=== PATIENT | female | born 1940 | race Caucasian/White ===

== ENCOUNTER 2018-12-23 20:21 | Inpatient (IN) | payer MEDICARE, MEDICAID ==
[~2018-12-23] VITALS: Ht 160 cm; Wt 90.9 kg
[~2018-12-23 20:21] MED LIST: ALLO100T PO; AMLO10TA13 PO; ASPI-1264 PO; BUDE10.2 INH; CLON0.2T PO; CLOP75TA35 PO; DONE10TA7 PO; GABA-532 PO; HUM10VIA SUBCUT; HYDR-4383 PO; MODA200T25 PO; OMEP20CA10 PO; OXYB10TA4 PO; POTA20TA19 PO; SIMV20TA5 PO
[2018-12-23 22:02] LABS: BASOPHILS # (AUTO) 0.1 X10'3 (0-0.2); BASOPHILS % (AUTO) 0.8 % (0-1); EOSINOPHILS # (AUTO) 0.2 X10'3 (0-0.9); HEMATOCRIT 40.8 % (35.0-45.0); HEMOGLOBIN 13.4 g/dl (12.0-16.0); LYMPHOCYTES # (AUTO) 1.7 X10'3 (1.1-4.8); LYMPHOCYTES % (AUTO) 18.2 % (21-51); MEAN CORPUSCULAR HEMOGLOBIN 28.3 PG (27.0-31.0); MEAN CORPUSCULAR HGB CONC 32.9 g/dL (33.0-36.5); MEAN CORPUSCULAR VOLUME 86.1 FL (78-98); MEAN PLATELET VOLUME 8.6 FL (7.4-10.4); MONOCYTES # (AUTO) 0.9 X10'3 (0-0.9); MONOCYTES % (AUTO) 10.3 % (2-12); NEUTROPHILS # (AUTO) 6.4 X10'3 (1.8-7.7); NEUTROPHILS % (AUTO) 68.7 % (42-75); PLATELET COUNT 266 X10'3 (140-440); RED BLOOD COUNT 4.74 X10'6 (4.20-5.60); RED CELL DISTRIBUTION WIDTH 18.1 % (11.5-14.5); WHITE BLOOD COUNT 9.2 X10'3 (4.5-11.0)
[2018-12-23 22:15] LABS: ALANINE AMINOTRANSFERASE 19 U/L (12-78); ALBUMIN 3.4 G/DL (3.4-5.0); ALKALINE PHOSPHATASE 151 IU/L (46-116); ANION GAP 7 (8-16); ASPARTATE AMINO TRANSFERASE 15 U/L (10-37); BILIRUBIN,TOTAL 0.3 MG/DL (0.1-1.0); BLOOD UREA NITROGEN 24 MG/DL (7-18); BUN/CREATININE RATIO 18.5 (6.6-38.0); CALCIUM 8.7 MG/DL (8.5-10.1); CHLORIDE 104 MMOL/L (99-107); GLUCOSE 74 MG/DL (70-104); PARTIAL THROMBOPLASTIN TIME 28 SECONDS (22-32); POTASSIUM 3.2 MMOL/L (3.5-5.1); SODIUM 141 MMOL/L (135-145); TOTAL CARBON DIOXIDE 30.1 MMOL/L (24-32); TOTAL PROTEIN 6.9 G/DL (6.4-8.2); eGFR 40 ML/MIN
[2018-12-23 22:17] LABS: ETHANOL < 0.010 GM/DL (0.0-0.010); TROPONIN I < 0.04 NG/ML (0.0-0.05)
[2018-12-23 22:18] LABS: CLARITY,URINE CLEAR (Clear); COLOR,URINE STRAW (Yellow); GLUCOSE, URINE NEGATIVE (Neg); KETONES,URINE NEGATIVE (Neg); LEUKOCYTE ESTERASE ,URINE NEGATIVE (Neg); NITRITES, URINE NEGATIVE (Neg); OCCULT BLOOD,URINE NEGATIVE (Neg); PH,URINE 5.5 (4.8-8.0); PROTEIN,URINE NEGATIVE (Neg); UROBILINOGEN,URINE 0.2 E.U/dL (0.2-1.0)
[2018-12-23 22:24] LABS: URINE AMPHETAMINE SCREEN NEGATIVE (Neg); URINE BARBITUATE SCREEN NEGATIVE (Neg); URINE BENZODIAZEPINES SCREEN NEGATIVE (Neg); URINE CANNABINOID SCREEN NEGATIVE (Neg); URINE COCAINE SCREEN NEGATIVE (Neg); URINE METHADONE SCREEN NEGATIVE (Neg); URINE OPIATE SCREEN NEGATIVE (Neg); URINE PHENCYCLIDINE SCREEN NEGATIVE (Neg)
[2018-12-23 22:32] LABS: UA COLLECTION TYPE STRAIGHT CATH
[2018-12-23] MEDS ORDERED: potassium Cl 20 mEq SR tablet PO ONE (22:35)
[2018-12-24] MEDS ORDERED: normal saline 1000ml 1,000 ML IV SCH (00:02)
[2018-12-24] MEDS ORDERED: acetaminophen 325mg tablet PO PRN ×2 (00:05)
[2018-12-24] MEDS ORDERED: mag hydrox/Alum hydrox/simeth 30ml oral suspension PO PRN (00:05)
[2018-12-24] MEDS ORDERED: potassium Cl 20 mEq SR tablet PO PRN ×2 (00:05)
[2018-12-24] MEDS ORDERED: magnesium 4gm in 100ml NS 100 ML IV PRN (00:05)
[2018-12-24] MEDS ORDERED: docusate sod 100mg capsule PO PRN (00:05)
[2018-12-24] MEDS ORDERED: ondansetron/PF 4mg/2ml inj IV PRN (00:05)
[2018-12-24] MEDS ORDERED: magnesium 2GM in 50ml NS 50 ML IV PRN (00:05)
[2018-12-24] MEDS ORDERED: potassium Cl 40MEQ/NS 500ml 500 ML IV PRN ×2 (00:05)
[2018-12-24] MEDS ORDERED: dextrose 50%-water 50ml dispensing syringe IV PRN ×2 (00:10)
[2018-12-24] MEDS ORDERED: MESSAGE TO PHARMACY PO ONE (00:10)
[2018-12-24] MEDS ORDERED: dextrose ORAL solution 15 GM/59 ML bottle PO PRN ×2 (00:10)
[2018-12-24] MEDS ORDERED: glucagon, human recombinant 1mg kit SUBCUT PRN (00:10)
[2018-12-24] MEDS ORDERED: insulin Lispro (HumaLOG) vial - multi-dose SQ SCH (00:10)
[2018-12-24] MEDS ORDERED: ipratropium/albuterol 3ml nebule NEB PRN (01:10)
[2018-12-24 03:55] VITALS: BP 152/58
--- NOTE | 2018-12-24 06:48 | NUR ---
Problems reprioritized. Patient report given, questions answered & plan of care reviewed with REHANA. Addendum: 12/24/18 at 0648 by Aashish Trejo RN Amended: Links added.
--- NOTE | 2018-12-24 06:51 | NUR ---
Patient in room [facility]. I have received report from NANCY Aguilar and had the opportunity to ask questions and assume patient care.
[2018-12-24 07:08] LABS: CHOLESTEROL 182 MG/DL (0-200); HDL CHOLESTEROL 26 MG/DL (35-60); LDL CHOLESTEROL 137 MG/DL (50-100); TRIGLYCERIDES 149 MG/DL (20-135)
[2018-12-24 07:28] LABS: HEMOGLOBIN A1C 6.7 % (4.5-6.2)
[2018-12-24 08:00] VITALS: BP 121/50
[2018-12-24] MEDS ORDERED: aspirin 81mg tablet.DR PO SCH (08:00)
[2018-12-24] MEDS ORDERED: K and/or MAG REPLACEMENT MC SCH (08:00)
[2018-12-24] MEDS ORDERED: clopidogrel 75mg tablet PO SCH (08:00)
[2018-12-24 11:07] LABS: MAGNESIUM 2.2 MG/DL (1.5-2.4); POTASSIUM 3.7 MMOL/L (3.5-5.1)
[2018-12-24 12:00] VITALS: BP 156/81
[2018-12-24] MEDS ORDERED: ASPI-974 PO (13:27)
[2018-12-24] MEDS ORDERED: CLOP75TA15 PO (13:28)
[2018-12-24] MEDS ORDERED: FURO80TA3 PO (13:32)
[2018-12-24] MEDS ORDERED: HUM10VIA SUBCUT (13:32)
[2018-12-24] MEDS ORDERED: ALLO300T8 PO (13:32)
[2018-12-24] MEDS ORDERED: insulin glargine (Lantus) pen - multi-dose SQ SCH (21:00)
== END 2018-12-24 16:05 | disposition home health service (06) | DRG 69 ==
LOC: ER 20:21 → ED HOLD 12-24 00:08 → SUR 3N 12-24 03:52
PROVIDERS: ADMIT Family Medicine; ATTEND Family Medicine
DX: G45.9 Transient cerebral ischemic attack, unspecified (principal); E11.51 Type 2 diabetes mellitus with diabetic peripheral angiopathy without gangrene; E78.5 Hyperlipidemia, unspecified; F03.90 Unspecified dementia, unspecified severity, without behavioral disturbance, psychotic disturbance, mood disturbance, and anxiety; G47.33 Obstructive sleep apnea (adult) (pediatric); I10 Essential (primary) hypertension; H54.61 Unqualified visual loss, right eye, normal vision left eye; J44.9 Chronic obstructive pulmonary disease, unspecified; Z60.2 Problems related to living alone; M81.0 Age-related osteoporosis without current pathological fracture; H53.47 Heteronymous bilateral field defects; R29.810 Facial weakness; I69.398 Other sequelae of cerebral infarction; Z90.710 Acquired absence of both cervix and uterus; Z88.1 Allergy status to other antibiotic agents; Z79.899 Other long term (current) drug therapy; Z79.82 Long term (current) use of aspirin; Z79.4 Long term (current) use of insulin; Z87.891 Personal history of nicotine dependence
CPT/HCPCS: 36415; 70450; 70544; 70547; 70551; 71045; 80053; 80061; 80305; 80320; 81003; 82140; 82948; 83036; 83735; 84132; 84484; 85025; 85610; 85730; 87070; 92508; 92616; 93306; 93880; 94760; 97116; 97162; 97530; 99285; G0378; J1815; J7030

== ENCOUNTER 2019-07-21 18:55 | Inpatient (IN) | payer MEDICARE, MEDICAID ==
[~2019-07-21] VITALS: Ht 160 cm; Wt 81.8 kg
[~2019-07-21 18:55] MED LIST changes: -ALLO100T PO; +ALLO300T8 PO; -ASPI-1264 PO; +ASPI-974 PO; +CLOP75TA15 PO; -CLOP75TA35 PO; +FURO80TA3 PO; -OMEP20CA10 PO; +SIMV-42 PO; -SIMV20TA5 PO
[2019-07-21] MEDS ORDERED: cloNIDine 0.1 mg tablet PO ONE (19:10)
[2019-07-21 19:24] LABS: BASOPHILS % (AUTO) 0.4 % (0-1); EOSINOPHILS # (AUTO) 0.1 X10'3 (0-0.9); EOSINOPHILS % (AUTO) 0.9 % (0-6); HEMATOCRIT 42.2 % (35.0-45.0); LYMPHOCYTES # (AUTO) 1.6 X10'3 (1.1-4.8); LYMPHOCYTES % (AUTO) 18.7 % (21-51); MEAN CORPUSCULAR HEMOGLOBIN 29.9 PG (27.0-31.0); MEAN CORPUSCULAR HGB CONC 33.1 g/dL (33.0-36.5); MEAN CORPUSCULAR VOLUME 90.6 FL (78-98); MEAN PLATELET VOLUME 8.2 FL (7.4-10.4); MONOCYTES # (AUTO) 0.8 X10'3 (0-0.9); MONOCYTES % (AUTO) 9.8 % (2-12); NEUTROPHILS # (AUTO) 6.1 X10'3 (1.8-7.7); NEUTROPHILS % (AUTO) 70.2 % (42-75); PLATELET COUNT 243 X10'3 (140-440); RED BLOOD COUNT 4.66 X10'6 (4.20-5.60); RED CELL DISTRIBUTION WIDTH 16.3 % (11.5-14.5); WHITE BLOOD COUNT 8.6 X10'3 (4.5-11.0)
[2019-07-21 19:35] LABS: PARTIAL THROMBOPLASTIN TIME 25 SECONDS (22-32)
[2019-07-21 19:47] LABS: ALANINE AMINOTRANSFERASE 14 U/L (12-78); ALBUMIN 3.8 G/DL (3.4-5.0); ALKALINE PHOSPHATASE 147 IU/L (46-116); ANION GAP 11 (8-16); ASPARTATE AMINO TRANSFERASE 14 U/L (10-37); BILIRUBIN,TOTAL 0.5 MG/DL (0.1-1.0); BLOOD UREA NITROGEN 19 MG/DL (7-18); BUN/CREATININE RATIO 16.1 (6.6-38.0); CHLORIDE 106 MMOL/L (99-107); CREATININE 1.18 MG/DL (0.40-0.90); GLUCOSE 176 MG/DL (70-104); POTASSIUM 3.9 MMOL/L (3.5-5.1); SODIUM 143 MMOL/L (135-145); TOTAL CARBON DIOXIDE 26.4 MMOL/L (24-32); TOTAL PROTEIN 7.6 G/DL (6.4-8.2); eGFR 45 ML/MIN
[2019-07-21 19:50] LABS: TROPONIN I < 0.04 NG/ML (0.0-0.05)
[2019-07-21 19:52] LABS: ETHANOL < 0.010 GM/DL (0.0-0.010)
--- NOTE | 2019-07-21 19:56 | NUR ---
PT BACK FROM CT 1923
[2019-07-21] MEDS ORDERED: MAGN400C PO (20:26)
[2019-07-21] MEDS ORDERED: magnesium hydroxide 30ml (MOM) UD suspension PO PRN (20:45)
[2019-07-21] MEDS ORDERED: ondansetron/PF 4mg/2ml inj IV PRN (20:45)
[2019-07-21] MEDS ORDERED: mag hydrox/Alum hydrox/simeth 30ml oral suspension PO PRN (20:45)
[2019-07-21] MEDS ORDERED: acetaminophen 325mg tablet PO PRN (20:45)
[2019-07-21] MEDS ORDERED: insulin Lispro (HumaLOG) vial - multi-dose SQ SCH (20:50)
[2019-07-21] MEDS ORDERED: glucagon, human recombinant 1mg kit SUBCUT PRN (20:50)
[2019-07-21] MEDS ORDERED: MESSAGE TO PHARMACY PO ONE (20:50)
[2019-07-21] MEDS ORDERED: dextrose 50%-water 50ml dispensing syringe IV PRN ×2 (20:50)
[2019-07-21] MEDS ORDERED: dextrose ORAL solution 15 GM/59 ML bottle PO PRN ×2 (20:50)
[2019-07-21] MEDS ORDERED: cloNIDine 0.2 MG/24 HR patch (7 day patch) TD ONE (20:50)
[2019-07-21] MEDS ORDERED: amLODIPine 5mg tablet PO ONE (20:50)
[2019-07-21] MEDS ORDERED: insulin glargine (Lantus) pen - multi-dose SQ SCH (21:00)
[2019-07-21] MEDS ORDERED: atorvastatin 10mg tablet PO SCH (21:00)
--- NOTE | 2019-07-21 21:18 | NUR ---
Patient in room . I have received report from NANCY Phan and had the opportunity to ask questions and assume patient care.
[2019-07-21 21:20] LABS: HEMOGLOBIN A1C 6.3 % (4.5-6.2)
[2019-07-21] MEDS: gabapentin 300mg capsule PO SCH (21:49)
[2019-07-21 21:53] VITALS: BP 204/100
[2019-07-21 22:12] VITALS: BP 190/98
--- NOTE | 2019-07-21 22:37 | NUR ---
Patient arrived on unit at approx 2130 via gurney and ambulated with steady gait and SBA to hospital bed in room 3013 A. 2RN skin check complete, meds given per MD order. Patient is aware of her name and . She does not know what year it is or who the president is. It takes patient time to answer simple questions. Her sports intern are equal, slight facial drift on left side that was present in ER and before admit from pervious stroke. Slight drift when patient sticks tongue out to the left. Patient BP elevated. Clonidine patch applied to LEFT SHOULDER. Will monitor BP.
[2019-07-22 00:19] VITALS: BP 190/80
--- NOTE | 2019-07-22 00:19 | NUR ---
Informed Kittrick of patient of BP 190/80. He would like to continue to monitor her on the clonidine patch.
[2019-07-22 02:00] VITALS: BP 140/62
--- NOTE | 2019-07-22 02:01 | NUR ---
Performed Neuro check patient is now oriented to person, place (hospital) and knows why she is here.
[2019-07-22] MEDS: albuterol 2.5 MG/3 ML nebule NEB SCH ×3 (03:35→14:33)
[2019-07-22 06:00] VITALS: BP 162/58
--- NOTE | 2019-07-22 06:00 | NUR ---
Patient in room PCU 3013. I have received report from Christianne CRUZ and had the opportunity to ask questions and assume patient care.
--- NOTE | 2019-07-22 06:03 | NUR ---
Problems reprioritized. Patient report given, questions answered & plan of care reviewed with NANCY Velasco.
[2019-07-22 06:06] LABS: BASOPHILS % (AUTO) 0.6 % (0-1); EOSINOPHILS # (AUTO) 0.1 X10'3 (0-0.9); EOSINOPHILS % (AUTO) 1.3 % (0-6); HEMATOCRIT 39.7 % (35.0-45.0); HEMOGLOBIN 13.2 g/dl (12.0-16.0); LYMPHOCYTES # (AUTO) 2.4 X10'3 (1.1-4.8); LYMPHOCYTES % (AUTO) 32.5 % (21-51); MEAN CORPUSCULAR HEMOGLOBIN 29.9 PG (27.0-31.0); MEAN CORPUSCULAR HGB CONC 33.2 g/dL (33.0-36.5); MEAN CORPUSCULAR VOLUME 90.1 FL (78-98); MEAN PLATELET VOLUME 8.1 FL (7.4-10.4); NEUTROPHILS # (AUTO) 3.8 X10'3 (1.8-7.7); NEUTROPHILS % (AUTO) 51.6 % (42-75); PLATELET COUNT 239 X10'3 (140-440); RED CELL DISTRIBUTION WIDTH 16.6 % (11.5-14.5); WHITE BLOOD COUNT 7.5 X10'3 (4.5-11.0)
[2019-07-22 06:48] LABS: ALANINE AMINOTRANSFERASE 14 U/L (12-78); ALBUMIN 3.3 G/DL (3.4-5.0); ALBUMIN/GLOBULIN RATIO 0.9 (1.1-1.5); ALKALINE PHOSPHATASE 127 IU/L (46-116); ANION GAP 9 (8-16); ASPARTATE AMINO TRANSFERASE 10 U/L (10-37); BILIRUBIN,TOTAL 0.4 MG/DL (0.1-1.0); BLOOD UREA NITROGEN 19 MG/DL (7-18); BUN/CREATININE RATIO 14.8 (6.6-38.0); CALCIUM 8.7 MG/DL (8.5-10.1); CHLORIDE 107 MMOL/L (99-107); CHOL/HDL RATIO 5.9 (0.00-4.99); CHOLESTEROL 176 MG/DL (0-200); CREATININE 1.28 MG/DL (0.40-0.90); GLUCOSE 124 MG/DL (70-104); HDL CHOLESTEROL 30 MG/DL (35-60); LDL CHOLESTEROL 117 MG/DL (50-100); POTASSIUM 3.7 MMOL/L (3.5-5.1); SODIUM 144 MMOL/L (135-145); TOTAL CARBON DIOXIDE 28.4 MMOL/L (24-32); TOTAL PROTEIN 6.8 G/DL (6.4-8.2); TRIGLYCERIDES 175 MG/DL (20-135); eGFR 41 ML/MIN
[2019-07-22] MEDS ORDERED: furosemide 40mg tablet PO SCH (08:00)
[2019-07-22] MEDS ORDERED: amLODIPine 5mg tablet PO SCH (08:00)
[2019-07-22] MEDS ORDERED: magnesium oxide 400mg tablet PO SCH (08:00)
[2019-07-22] MEDS ORDERED: potassium Cl 20 mEq SR tablet PO SCH (08:00)
[2019-07-22] MEDS ORDERED: donepezil 5mg tablet PO SCH (08:00)
[2019-07-22] MEDS ORDERED: allopurinol 300 MG tablet PO SCH (08:00)
[2019-07-22] MEDS ORDERED: clopidogrel 75mg tablet PO SCH (08:00)
[2019-07-22] MEDS ORDERED: aspirin 325mg tablet PO SCH (08:00)
[2019-07-22] MEDS ORDERED: heparin, porcine 5000 units/ml vial SQ SCH (08:00)
[2019-07-22] MEDS ORDERED: budesonide 0.5mg/2ml UD nebule IH SCH (09:00)
[2019-07-22] MEDS: gabapentin 300mg capsule PO SCH ×2 (09:42→13:08)
[2019-07-22 11:00] VITALS: BP 134/79
--- NOTE | 2019-07-22 15:05 | NUR ---
Per MD orders, stable for discharge home. Discharge instructions and prescriptions reviewed and all queries/concerns addressed with patient and family to satisfaction. No new prescriptions to call in. Tele monitoring and PIV discontinued; cannula intact. All belongings sent with patient. Transferred to private vehicle via wheelchair accompanied by daughter.
== END 2019-07-22 15:05 | disposition home health service (06) | DRG 79 ==
LOC: ER 18:55 → PCU 3S 20:41 → EDBEDREQTM 20:55
PROVIDERS: ADMIT Internal Medicine; ATTEND Family Medicine
DX: I67.4 Hypertensive encephalopathy (principal); I10 Essential (primary) hypertension; E11.9 Type 2 diabetes mellitus without complications; J44.9 Chronic obstructive pulmonary disease, unspecified; M81.0 Age-related osteoporosis without current pathological fracture; Z60.2 Problems related to living alone; Z79.82 Long term (current) use of aspirin; Z88.1 Allergy status to other antibiotic agents; Z79.899 Other long term (current) drug therapy; Z86.73 Personal history of transient ischemic attack (TIA), and cerebral infarction without residual deficits; Z90.710 Acquired absence of both cervix and uterus; Z82.3 Family history of stroke
CPT/HCPCS: 36415; 70450; 71045; 80053; 80061; 80320; 82948; 83036; 84484; 85025; 85610; 85730; 87081; 93005; 94640; 94760; 99285; G0378; J1644; J1815; J7626

== ENCOUNTER 2020-03-12 14:06 | Emergency (ER) | payer MEDICARE, MEDICAID ==
[~2020-03-12] VITALS: Ht 165.1 cm; Wt 90.0 kg
[~2020-03-12 14:06] MED LIST changes: +ALBU8.5H8 INH; -AMLO10TA13 PO; -CLON0.2T PO; +HUM10VIA SQ; -HYDR-4383 PO; +LANTUS SOLOSTAR; +MAGN400C PO
--- NOTE | 2020-03-12 14:19 | NUR ---
TRAUMA LEVEL 2
--- NOTE | 2020-03-12 14:41 | NUR ---
pt out to ct via wheelchair with furniture inspector
[2020-03-12] MEDS ORDERED: tranexamic acid inj. 1,000 MG in normal saline 100ml IV soln 100 ML IV ONE (15:30)
[2020-03-12 15:32] LABS: BASOPHILS # (AUTO) 0.1 X10'3 (0-0.2); BASOPHILS % (AUTO) 0.4 % (0-1); EOSINOPHILS % (AUTO) 0.2 % (0-6); HEMATOCRIT 46.8 % (35.0-45.0); HEMOGLOBIN 15.3 g/dl (12.0-16.0); LYMPHOCYTES # (AUTO) 2.3 X10'3 (1.1-4.8); LYMPHOCYTES % (AUTO) 15.7 % (21-51); MEAN CORPUSCULAR HEMOGLOBIN 29.1 PG (27.0-31.0); MEAN CORPUSCULAR HGB CONC 32.8 g/dL (33.0-36.5); MEAN CORPUSCULAR VOLUME 88.7 FL (78-98); MEAN PLATELET VOLUME 8.6 FL (7.4-10.4); MONOCYTES # (AUTO) 1.8 X10'3 (0-0.9); MONOCYTES % (AUTO) 12.5 % (2-12); NEUTROPHILS # (AUTO) 10.3 X10'3 (1.8-7.7); NEUTROPHILS % (AUTO) 71.2 % (42-75); PLATELET COUNT 361 X10'3 (140-440); RED BLOOD COUNT 5.28 X10'6 (4.20-5.60); RED CELL DISTRIBUTION WIDTH 16.6 % (11.5-14.5); WHITE BLOOD COUNT 14.4 X10'3 (4.5-11.0)
[2020-03-12 15:40] LABS: PARTIAL THROMBOPLASTIN TIME 27 SECONDS (22-32)
[2020-03-12 15:41] LABS: ALANINE AMINOTRANSFERASE 19 U/L (12-78); ALBUMIN 3.9 G/DL (3.4-5.0); ALBUMIN/GLOBULIN RATIO 1.1 (1.1-1.5); ALKALINE PHOSPHATASE 133 IU/L (46-116); ANION GAP 15 (8-16); ASPARTATE AMINO TRANSFERASE 30 U/L (10-37); BILIRUBIN,TOTAL 0.8 MG/DL (0.1-1.0); BLOOD UREA NITROGEN 43 MG/DL (7-18); BUN/CREATININE RATIO 16.2 (6.6-38.0); CALCIUM 9.4 MG/DL (8.5-10.1); CHLORIDE 106 MMOL/L (99-107); CREATININE 2.66 MG/DL (0.40-0.90); GLUCOSE 128 MG/DL (70-104); POTASSIUM 4.1 MMOL/L (3.5-5.1); SODIUM 146 MMOL/L (135-145); TOTAL CARBON DIOXIDE 24.7 MMOL/L (24-32); TOTAL PROTEIN 7.3 G/DL (6.4-8.2); eGFR 17 ML/MIN
--- NOTE | 2020-03-12 15:46 | NUR ---
[facility] AT THE BEDSIDE PREPARING FOR TRANSPORT
--- NOTE | 2020-03-12 16:47 | NUR ---
1743 ETA WITH [facility] [address]
--- NOTE | 2020-03-12 17:53 | NUR ---
[facility] AT THE BEDSIDE FOR TRANSFER OF PT
[2020-03-12 18:37] VITALS: BP 142/70
== END 2020-03-12 18:39 | disposition short-term general hospital (02) ==
LOC: ER 14:06
DX: S06.5X1A Traumatic subdural hemorrhage with loss of consciousness of 30 minutes or less, initial encounter (principal); S00.03XA Contusion of scalp, initial encounter; E78.00 Pure hypercholesterolemia, unspecified; I10 Essential (primary) hypertension; J44.9 Chronic obstructive pulmonary disease, unspecified; G47.30 Sleep apnea, unspecified; E11.9 Type 2 diabetes mellitus without complications; M81.0 Age-related osteoporosis without current pathological fracture; Z90.710 Acquired absence of both cervix and uterus; Z86.73 Personal history of transient ischemic attack (TIA), and cerebral infarction without residual deficits; Z88.1 Allergy status to other antibiotic agents; Z79.82 Long term (current) use of aspirin; Z79.4 Long term (current) use of insulin; Z79.899 Other long term (current) drug therapy; W18.39XA Other fall on same level, initial encounter; Y93.89 Activity, other specified; Y92.89 Other specified places as the place of occurrence of the external cause; Y99.8 Other external cause status
CPT/HCPCS: 36415; 70450; 80053; 85025; 85610; 85730; 96365; 96366; 99285

== ENCOUNTER 2020-10-27 18:24 | Emergency (ER) | payer MEDICARE, MEDICAID ==
[~2020-10-27] VITALS: Ht 167.6 cm; Wt 98.0 kg
[~2020-10-27 18:24] MED LIST changes: +AMLO10TA PO; -MODA200T25 PO
[2020-10-27 18:27] VITALS: BP 159/60
[2020-10-27] MEDS ORDERED: normal saline 1000ML IV soln IVB ONE (18:40)
--- NOTE | 2020-10-27 18:50 | NUR ---
returned to CT scan
[2020-10-27 19:08] LABS: BASOPHILS % (AUTO) 0.4 % (0-1); EOSINOPHILS # (AUTO) 0.1 X10'3 (0-0.9); EOSINOPHILS % (AUTO) 0.6 % (0-6); HEMATOCRIT 39.7 % (35.0-45.0); HEMOGLOBIN 12.8 g/dl (12.0-16.0); LYMPHOCYTES # (AUTO) 1.1 X10'3 (1.1-4.8); LYMPHOCYTES % (AUTO) 12.3 % (21-51); MEAN CORPUSCULAR HEMOGLOBIN 28.5 PG (27.0-31.0); MEAN CORPUSCULAR HGB CONC 32.4 g/dL (33.0-36.5); MEAN CORPUSCULAR VOLUME 88.1 FL (78-98); MEAN PLATELET VOLUME 8.4 FL (7.4-10.4); MONOCYTES % (AUTO) 10.8 % (2-12); NEUTROPHILS # (AUTO) 6.8 X10'3 (1.8-7.7); NEUTROPHILS % (AUTO) 75.9 % (42-75); PLATELET COUNT 266 X10'3 (140-440); RED CELL DISTRIBUTION WIDTH 17.2 % (11.5-14.5); WHITE BLOOD COUNT 8.9 X10'3 (4.5-11.0)
--- NOTE | 2020-10-27 19:08 | NUR ---
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
[2020-10-27 19:23] LABS: ALANINE AMINOTRANSFERASE 13 U/L (12-78); ALBUMIN 3.6 G/DL (3.4-5.0); ALKALINE PHOSPHATASE 135 IU/L (46-116); ANION GAP 11 (8-16); ASPARTATE AMINO TRANSFERASE 20 U/L (10-37); BILIRUBIN,TOTAL 0.3 MG/DL (0.1-1.0); BLOOD UREA NITROGEN 32 MG/DL (7-18); BUN/CREATININE RATIO 20.8 (6.6-38.0); CALCIUM 8.5 MG/DL (8.5-10.1); CHLORIDE 105 MMOL/L (99-107); CREATININE 1.54 MG/DL (0.40-0.90); GLUCOSE 122 MG/DL (70-104); POTASSIUM 3.4 MMOL/L (3.5-5.1); SODIUM 142 MMOL/L (135-145); TOTAL CARBON DIOXIDE 26.5 MMOL/L (24-32); TOTAL PROTEIN 7.2 G/DL (6.4-8.2); eGFR 33 ML/MIN
[2020-10-27 19:26] LABS: ETHANOL < 0.010 GM/DL (0.0-0.010); TROPONIN I < 0.04 NG/ML (0.0-0.05)
[2020-10-27 19:55] LABS: CLARITY,URINE CLEAR (Clear); COLOR,URINE YELLOW (Yellow); GLUCOSE, URINE NEGATIVE (Neg); KETONES,URINE NEGATIVE (Neg); LEUKOCYTE ESTERASE ,URINE NEGATIVE (Neg); NITRITES, URINE NEGATIVE (Neg); OCCULT BLOOD,URINE NEGATIVE (Neg); PROTEIN,URINE NEGATIVE (Neg); UROBILINOGEN,URINE 0.2 E.U/dL (0.2-1.0)
[2020-10-27 19:59] LABS: UA COLLECTION TYPE NON-SPECIFIED
--- NOTE | 2020-10-27 20:09 | NUR ---
Britni krishnan in ED - 10/27/20 at 2010 by ALEXANDER called [facility] for ride home she is getting in the shower before she comes to supervisor opening and picking her mother will be here in 45 minutes
--- NOTE | 2020-10-27 20:19 | NUR ---
CALLED DAUGHTER ALINA FOR RIDE HOME WILL BE HER IN 45 MINUTES PATIENT REPORTS NOT EATING LUNCH TODAY AND NOT HAVING HER REGULAR HELP FOR LAST FEW DAYS HER HAND HIDE STRETCHER HAS BEEN SICK, PATIENT TOOK HER INSULING THIS AFTERNOON ANSD REPORTS NOT EATING LUNCH.
--- NOTE | 2020-10-27 20:52 | NUR ---
PATIENT TAKEN OUT TO DAUGHTER'S CAR VIA W/C BY RN. DAUGHTER UPDATED THAT PATIENT'S CAREGIVER HAS NOT BEEN OUT FOR SEVERAL DAYS AND THAT PATIENT TOOK INSULIN BUT DID NOT HAVE MEAL TODAY AND THEN PRESENTED TO HOSPITAL. DAUGHTER STATES SHE IS AWARE AND THAT GRANDDAUGHTER HAS BEEN GOING OUT TO HELP PATIENT AND THAT PATIENT "REFUSES TO MOVE IN WITH ME".
== END 2020-10-27 20:57 | disposition home or self-care (01) ==
LOC: ER 18:25
DX: E11.649 Type 2 diabetes mellitus with hypoglycemia without coma (principal); R55 Syncope and collapse; R47.81 Slurred speech; E78.00 Pure hypercholesterolemia, unspecified; I10 Essential (primary) hypertension; J44.9 Chronic obstructive pulmonary disease, unspecified; Z86.73 Personal history of transient ischemic attack (TIA), and cerebral infarction without residual deficits; Z90.710 Acquired absence of both cervix and uterus; Z60.2 Problems related to living alone; Z88.1 Allergy status to other antibiotic agents; Z79.82 Long term (current) use of aspirin; Z79.899 Other long term (current) drug therapy; Z79.4 Long term (current) use of insulin
CPT/HCPCS: 36415; 70450; 71045; 80053; 80320; 81003; 82948; 84484; 85025; 93005; 96360; 99285; J7030

== ENCOUNTER 2020-12-20 11:38 | Emergency (ER) | payer MEDICARE, MEDICAID ==
[~2020-12-20] VITALS: Ht 163.8 cm; Wt 100.0 kg
[2020-12-20] MEDS ORDERED: DEXTROSE 10 % AND 0.45 % NACL 1,000 ML IV SCH (11:55)
[2020-12-20] MEDS ORDERED: dextrose 50%-water 50ml dispensing syringe IV ONE (12:05)
[2020-12-20 12:09] LABS: BASOPHILS % (AUTO) 0.4 % (0-1); EOSINOPHILS # (AUTO) 0.1 X10'3 (0-0.9); EOSINOPHILS % (AUTO) 0.8 % (0-6); HEMATOCRIT 43.1 % (35.0-45.0); HEMOGLOBIN 13.7 g/dl (12.0-16.0); LYMPHOCYTES # (AUTO) 1.8 X10'3 (1.1-4.8); LYMPHOCYTES % (AUTO) 21.6 % (21-51); MEAN CORPUSCULAR HEMOGLOBIN 27.8 PG (27.0-31.0); MEAN CORPUSCULAR HGB CONC 31.8 g/dL (33.0-36.5); MEAN CORPUSCULAR VOLUME 87.4 FL (78-98); MEAN PLATELET VOLUME 8.1 FL (7.4-10.4); MONOCYTES # (AUTO) 1.1 X10'3 (0-0.9); MONOCYTES % (AUTO) 13.2 % (2-12); NEUTROPHILS # (AUTO) 5.4 X10'3 (1.8-7.7); PLATELET COUNT 285 X10'3 (140-440); RED BLOOD COUNT 4.93 X10'6 (4.20-5.60); RED CELL DISTRIBUTION WIDTH 16.8 % (11.5-14.5); WHITE BLOOD COUNT 8.4 X10'3 (4.5-11.0)
[2020-12-20 12:21] LABS: PARTIAL THROMBOPLASTIN TIME 25 SECONDS (22-32)
[2020-12-20 12:27] LABS: ALANINE AMINOTRANSFERASE 13 U/L (12-78); ALBUMIN 3.4 G/DL (3.4-5.0); ALBUMIN/GLOBULIN RATIO 0.9 (1.1-1.5); ALKALINE PHOSPHATASE 125 IU/L (46-116); ANION GAP 9 (8-16); ASPARTATE AMINO TRANSFERASE 11 U/L (10-37); BILIRUBIN,TOTAL 0.4 MG/DL (0.1-1.0); BLOOD UREA NITROGEN 24 MG/DL (7-18); BUN/CREATININE RATIO 17.3 (6.6-38.0); CALCIUM 8.9 MG/DL (8.5-10.1); CHLORIDE 109 MMOL/L (99-107); CREATININE 1.39 MG/DL (0.40-0.90); POTASSIUM 3.4 MMOL/L (3.5-5.1); SODIUM 146 MMOL/L (135-145); TOTAL CARBON DIOXIDE 28.2 MMOL/L (24-32); TROPONIN I < 0.04 NG/ML (0.0-0.05); eGFR 37 ML/MIN
[2020-12-20 12:39] LABS: GLUCOSE 43 MG/DL (70-104)
[2020-12-20 14:32] LABS: CLARITY,URINE CLEAR (Clear); COLOR,URINE STRAW (Yellow); GLUCOSE, URINE NEGATIVE (Neg); KETONES,URINE NEGATIVE (Neg); LEUKOCYTE ESTERASE ,URINE SMALL (Neg); NITRITES, URINE NEGATIVE (Neg); OCCULT BLOOD,URINE NEGATIVE (Neg); PH,URINE 5.5 (4.8-8.0); PROTEIN,URINE NEGATIVE (Neg); UROBILINOGEN,URINE 0.2 E.U/dL (0.2-1.0)
[2020-12-20 14:39] LABS: UA COLLECTION TYPE CLN CATCH MIDSTREAM
[2020-12-20 14:40] LABS: BACTERIA,URINE FEW /HPF (Neg); MUCUS STRANDS FEW /LPF (Neg); RBC,URINE 0-2 /HPF (0-2); SQUAMOUS EPITHELIAL CELL,UR FEW /LPF (FEW); WBC,URINE 0-4 /HPF (0-4)
--- NOTE | 2020-12-20 15:07 | NUR ---
PT GIVEN SANDWICH, OJ, AND CHEESE STICK, CHECKED BG AFTER 30 MINS, BG 71, GAVE MILK AND CHEESE STICK
[2020-12-20 15:08] VITALS: BP 116/78
--- NOTE | 2020-12-20 15:16 | NUR ---
[facility] [phone] will be her ride upon discharge.
== END 2020-12-20 17:41 | disposition home or self-care (01) ==
LOC: ER 11:38
DX: E11.649 Type 2 diabetes mellitus with hypoglycemia without coma (principal); R41.82 Altered mental status, unspecified; R53.1 Weakness; R47.81 Slurred speech; E78.00 Pure hypercholesterolemia, unspecified; I10 Essential (primary) hypertension; J44.9 Chronic obstructive pulmonary disease, unspecified; Z86.73 Personal history of transient ischemic attack (TIA), and cerebral infarction without residual deficits; Z90.710 Acquired absence of both cervix and uterus; Z60.2 Problems related to living alone; Z88.1 Allergy status to other antibiotic agents; Z79.82 Long term (current) use of aspirin; Z79.4 Long term (current) use of insulin; Z79.899 Other long term (current) drug therapy
CPT/HCPCS: 36415; 70450; 71045; 80053; 81001; 82948; 84484; 85025; 85610; 85730; 87088; 93005; 96365; 96366; 96375; 99285